=== PATIENT | female | born 1960 | race Caucasian/White ===

== ENCOUNTER → 2016-10-12 | Outpatient (CLI) | payer BC ==
--- NOTE | 2016-10-13 13:22 | EEG Procedure Note ---
EEG Procedure Note Date of Service Oct 12, 2016. Start / End Times Start Time: 8:24 AM End Time: 9:45 AM Referring Physician Veronica Gupta History This is a 56-year-old female with sudden onset cognitive changes concerning for possible frontotemporal dementia. EEG for further evaluation of rapid onset dementia to rule out other etiologies or seizures. Description This is a 21 electrode EEG with a single channel dedicated to limited EKG. The electrodes were placed in accordance with the International 10-20 system. At the start of the recording the patient was in an awake state. Background was well organized and composed of symmetric mixed alpha and beta frequencies. There was a symmetric well-formed moderate amplitude 10-11 Hz posterior dominant rhythm that was reactive to eye opening and closure. Hyperventilation was not done. Intermittent photic stimulation at various frequencies produced no abnormalities. Sleep was indicated by vertex waves and symmetric sleep spindles Interpretation This is a normal awake and asleep routine EEG. There was no electrographic seizures or epileptiform discharges. Clinical Correlation A normal EEG does not rule out epilepsy if there is a strong clinical suspicion.
== END | disposition home or self-care (01) ==
LOC: C.NEUR 07:55
PROVIDERS: ATTEND Psychiatry & Neurology Neurology
DX: G31.09 Other frontotemporal neurocognitive disorder (principal)

== ENCOUNTER → 2017-02-07 | Outpatient (CLI) | payer BC | END | disposition home or self-care (01) | LOC: C.PAPS 14:02 | PROVIDERS: ATTEND Physician Assistant | DX: Z01.419 Encounter for gynecological examination (general) (routine) without abnormal findings (principal) ==

== ENCOUNTER → 2017-07-06 | Outpatient (CLI) | payer BC ==
[2017-07-06 12:37] LABS: ALBUMIN 4.3 gm/dl (3.4-5.0); BLOOD UREA NITROGEN 12 mg/dl (7-18); CARBON DIOXIDE 31 mmol/L (21-32); CREATININE 0.77 mg/dl (0.60-1.20); GLUCOSE 85 mg/dl (70-99); POTASSIUM 4.2 mmol/L (3.5-5.1); SODIUM 140 mmol/L (136-145)
[2017-07-06 12:40] LABS: ALKALINE PHOSPHATASE 92 U/L (45-117); ALT/SGPT 52 U/L (12-78); AST/SGOT 33 U/L (15-37); CHOLESTEROL 228 mg/dl (0-200); LDL CHOLESTEROL CALCULATED 143 mg/dl; TOTAL PROTEIN 8.1 gm/dl (6.4-8.2)
[2017-07-10 02:26] LABS: ANA SCREEN TC 249X POSITIVE (NEGATIVE); ANTI-SS-A <1.0 NEG AI (<1.0 NEG); ANTI-SS-B <1.0 NEG AI (<1.0 NEG); COMPLEMENT C3 TC 44859W 102 MG/DL (90-180); COMPLEMENT C4 TC 44982E 30 MG/DL (16-47)
== END | disposition home or self-care (01) ==
LOC: C.LAB1850 09:55
PROVIDERS: ATTEND Internal Medicine
DX: F09 Unspecified mental disorder due to known physiological condition (principal); Z13.220 Encounter for screening for lipoid disorders; G30.9 Alzheimer's disease, unspecified

== ENCOUNTER 2021-02-23 10:39 | Inpatient (IN) ==
[~2021-02-23 10:39] MED LIST: CLINDAMYCIN 600 MG/54 ML BAG IV SCH
[2021-02-23 11:13] LABS: Basophils # (auto) 0.01 K/uL (0-0.2); Basophils % (auto) 0.1 %; Eosinophils # (auto) 0.02 K/uL (0-0.5); Eosinophils % (auto) 0.3 %; Immature Granulocytes # (auto) 0.01 K/uL (0.00-0.02); Immature Granulocytes % (auto) 0.1 %; Lymphocytes # (auto) 1.12 K/uL (1.2-3.4); Lymphocytes % (auto) 14.4 %; Mean Corpuscular Hemoglobin 31.4 pg (25-34); Mean Corpuscular Volume 92.3 fL (80-100); Mean Platelet Volume 9.4 fL (7.4-10.4); Monocytes # (auto) 0.67 K/uL (0.11-0.59); Monocytes % (auto) 8.6 %; Neutrophils # (auto) 5.95 K/uL (1.4-6.5); Neutrophils % (auto) 76.5 %; Platelet Count 284 K/uL (130-400); RDW Coefficient of Variation 13.1 % (11.5-14.5); RDW Standard Deviation 44.1 fL (36.4-46.3); Red Blood Count 5.09 M/uL (4.2-5.4); White Blood Count 7.78 K/uL (4.8-10.8)
[2021-02-23 11:30] LABS: Alanine Aminotransferase 19 (12-78); Albumin Level 3.5 gm/dl (3.4-5.0); Aspartate Aminotransferase 14 U/L (15-37); BUN Creatinine Ratio 12.2 (10-20); Blood Urea Nitrogen 9 mg/dl (7-18); Calcium 9.5 mg/dl (8.5-10.1); Carbon Dioxide 30 mmol/L (21-32); Chloride 106 mmol/L (98-107); Est GFR (African American) 99.5 ml/min; Est GFR (Non-African American) 85.9 ml/min; Glucose 97 mg/dl (70-99); Lipase 140 U/L (73-393); Potassium 3.5 mmol/L (3.5-5.1); Sodium 140 mmol/L (136-145)
[2021-02-23 11:33] LABS: Albumin Globulin Ratio 0.8 (0.9-2); Alkaline Phosphatase 141 U/L (45-117); Bilirubin,Total 1.7 mg/dl (0.2-1); Globulin 4.4 gm/dl (2.5-4.0); Total Protein 7.9 gm/dl (6.4-8.2)
[2021-02-23] MEDS ORDERED: OPTIRAY 320 100ml IV ONE (11:45)
[2021-02-23] MEDS ORDERED: MoRPHine SULFATE 2 MG/ML CARP IV STA (12:09)
[2021-02-23] MEDS ORDERED: ONDANSETRON INJ 2 MG/ML 2 ML VIAL IV STA (12:09)
--- NOTE | 2021-02-23 12:18 | Emergency Department Note ---
History of Present Illness General Chief complaint: Abdominal Pain Stated complaint: APENDICITIS, ABD PAIN, VOMITING, DR REFERRED History of Present Illness This patient is a 60-year-old female who presents the emergency department via private vehicle for evaluation of right lower abdominal pain that the patient's noticed 2 days ago. The patient has a history of Alzheimer's disease and is nonverbal. The history was taken from the patient's . He was bathing her 2 days ago, when he noticed that she was wincing in pain when he touched her lower abdomen. She also has had several episodes of vomiting and diarrhea. The patient's contacted their primary care today as they were concerned about appendicitis. The patient's denies any fever. She has not received anything for pain. Home Medications Medication Instructions Recorded Confirmed Type buspirone 10 mg tablet 20 mg PO BID tab 05/20/20 02/23/21 History donepezil 10 mg tablet See Rx Instructions .ROUTE 08/28/20 02/23/21 Rx .COMPLEX #60 tab haloperidol 2 mg tablet 2 mg PO DAILY tab 09/24/20 02/23/21 History lorazepam 1 mg tablet 1 mg PO .COMPLEX 09/25/20 02/23/21 History paroxetine HCl 20 mg tablet 20 mg PO .COMPLEX #1 tab 01/19/21 02/23/21 Rx acyclovir 5 % topical cream 1 applic TOPICAL BID 4 Days #10 g 02/10/21 02/23/21 Rx memantine 10 mg tablet 10 mg PO BID 30 Days #60 tab 02/11/21 02/23/21 Rx mupirocin 2 % topical ointment 1 applic TOPICAL BID #15 g 02/12/21 02/23/21 Rx Allergies Allergy/AdvReac Type Severity Reaction Status Date / Time Penicillins Allergy Unknown CAN'T Verified 02/23/21 14:40 REMEMBER acetaminophen Allergy Unknown Verified 02/23/21 16:32 [From Darvocet-N] propoxyphene Allergy Unknown Verified 02/23/21 16:32 [From Darvocet-N] Past Med/Surg History Medical History Alzheimer's dementia end-stage, averbal Arthritis of low back Endometriosis Groin pain Hiatal hernia Hx of skin cancer, basal cell Positive FRANCHESCA (antinuclear antibody) Uterine leiomyoma Surgical History H/O bilateral salpingo-oophorectomy H/O breast augmentation H/O laparoscopy H/O ovarian cystectomy History of laparoscopic appendectomy (02/23/21) Laparoscopic appendectomy. Dr. Hernández 02/23/2021 S/P hysterectomy with oophorectomy S/P tonsillectomy S/P tooth extraction Family History Father Colon cancer Clotting disorder Grandmother (Maternal) Ovarian cancer Grandfather (Maternal) Heart problem Mother No known health problems Denies family history of Breast cancer Social History Smoking Status: Unknown if ever smoked Second Hand Exposure: No; Do You Dip or Chew Tobacco: No; Tobacco Cessation Education Requested by Patient: No Hx Alcohol Use: No Hx Substance Use: No Preferred Language: Liberian Communication Ability: Unable Visual Impairment: No Limitations Hearing Ability: Normal Beliefs That Will Affect Care: None marital status: Current Living Situation: Spouse current occupational status: disabled 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 Feels Safe at Home: Yes Physical Activity Frequency: 3-4 Times per Week Seatbelt Use: always Assistive Devices: None Review of Systems A total of 10 systems reviewed and were otherwise negative Physical Exam Vital Signs Vital Signs - 24 hr 02/23/21 12:34 02/23/21 13:26 02/23/21 14:17 Temperature Temperature Source Pulse Rate [Apical] 68 67 64 Pulse Rhythm [Apical] Regular Pulse Strength [Apical] Normal Respiratory Rate 16 18 18 Respiratory Effort / Characteristics Non-Labored Non-Labored Respiratory Depth Normal Normal Normal Respiratory Pattern Regular Regular Regular Blood Pressure [Left Arm] 121/72 121/72 116/75 Blood Pressure Mean [Left Arm] 88 88 88 Blood Pressure Position [Left Arm] Sitting Semi-fowlers Sitting Pulse Oximetry 98 97 97 Oxygen Delivery Method Room Air Room Air Room Air 02/23/21 15:07 Temperature 36.6 C Temperature Source Oral Pulse Rate [Apical] 66 Pulse Rhythm [Apical] Regular Pulse Strength [Apical] Normal Respiratory Rate 18 Respiratory Effort / Characteristics Non-Labored Spontaneous Respiratory Depth Normal Respiratory Pattern Blood Pressure [Left Arm] 127/70 Blood Pressure Mean [Left Arm] 89 Blood Pressure Position [Left Arm] Lying Pulse Oximetry 96 Oxygen Delivery Method Room Air See below Constitutional WD/WN, vitals as above Eyes EOM intact bilaterally ENMT external ear and nose normal, oropharynx normal Neck trachea midline Respiratory normal respiratory effort, lungs clear to auscultation Cardiovascular RRR, no murmur, no edema Gastrointestinal (Abdomen) Bowel sounds present, but hypoactive. Tenderness to palpation noted in the right lower quadrant. No guarding or rebound tenderness noted. Abdomen is soft. Musculoskeletal No edema noted. The patient does not follow commands. Skin no rashes, warm and dry Neurologic The patient opens her eyes to verbal stimuli. Smiles. Does not follow commands. Psychiatric Acting appropriately Course Course Patient was seen and examined Vital signs including blood pressure were reviewed medications list was verified with patient Labs were obtained, and a saline lock was established The patient was ordered morphine 2 mg IV and Zofran 4 mg IV. She was also ordered IV fluids. Imaging was performed and reviewed Upon reevaluation, the patient was resting comfortably. I discussed the results with the patient's . He voiced understanding The case was discussed with general surgery in addition to my supervising physician The patient remained stable in the emergency department. She went to the OR for definitive management Consultations Consultation #1: general surgery Administered Medications Buspirone HCl (Buspirone 5 Mg Tab) 20 mg PO BID [facility] Stop: 03/25/21 20:59 Last Admin: 02/24/21 10:04 Dose: 20 mg Documented by: [id number] Admin: 02/23/21 21:10 Dose: 20 mg Documented by: [id number] Donepezil HCl (Donepezil Hcl 10 Mg Tab) 10 mg PO BID [facility] Stop: 03/25/21 20:59 Last Admin: 02/24/21 10:05 Dose: 10 mg Documented by: [id number] Admin: 02/23/21 21:10 Dose: 10 mg Documented by: [id number] Haloperidol (Haloperidol 1 Mg Tab) 2 mg PO DAILY [facility] Stop: 03/26/21 08:59 Last Admin: 02/24/21 10:05 Dose: 2 mg Documented by: [id number] Clindamycin Phosphate 600 mg/ (Dextrose) 54 mls @ 100 mls/hr IV Q8H BEATRICE Stop: 03/05/21 18:20 Last Infusion: 02/24/21 06:32 Dose: 0 mls/hr Documented by: [id number] Admin: 02/24/21 05:49 Dose: 100 mls/hr Documented by: [id number] Infusion: 02/23/21 22:02 Dose: 0 mls/hr Documented by: [id number] Admin: 02/23/21 21:10 Dose: 100 mls/hr Documented by: [id number] Sodium Chloride (Nss 1000ml) 1,000 mls @ 80 mls/hr IV .[id number] BEATRICE Stop: 03/25/21 18:20 Last Admin: 02/24/21 05:50 Dose: 80 mls/hr Documented by: [id number] Infusion: 02/24/21 05:50 Dose: 80 mls/hr Documented by: [id number] Admin: 02/23/21 18:25 Dose: 80 mls/hr Documented by: [id number] Memantine (Memantine Hcl 10 Mg Tab) 10 mg PO BID [facility] Stop: 03/25/21 20:59 Last Admin: 02/24/21 10:06 Dose: 10 mg Documented by: [id number] Admin: 02/23/21 21:10 Dose: 10 mg Documented by: [id number] Mupirocin (Mupirocin 2% Oint 22 Gm Tube) 1 appln EXT BID [facility] Stop: 03/25/21 20:59 Last Admin: 02/24/21 10:20 Dose: 1 appln Documented by: [id number] Admin: 02/23/21 22:02 Dose: Not Given Documented by: [id number] Oxycodone HCl (Oxycodone Hcl Ir 5 Mg Tab (Immediate Release)) 5 mg PO Q4HWA PRN PRN Reason: Pain Stop: 03/09/21 18:20 Last Admin: 02/24/21 10:16 Dose: 5 mg Documented by: [id number] Paroxetine HCl (Paroxetine Hcl 20 Mg Tab) 20 mg PO HS [facility] Stop: 03/25/21 20:59 Last Admin: 02/23/21 21:10 Dose: 20 mg Documented by: [id number] Discontinued Medications Bupivacaine HCl (Bupivacaine 0.5 % 5 Mg/1 Ml Mpf 30ml Vial) Confirm Administered Dose 30 ml .ROUTE .STK-MED ONE Stop: 02/23/21 14:33 Last Admin: 02/23/21 16:25 Dose: 6 ml Documented by: [id number] Dextrose/Sodium Chloride (D5w And 1/2nss) 1,000 mls @ 125 mls/hr IV .Q8H BEATRICE Stop: 03/25/21 13:44 Last Infusion: 02/24/21 02:15 Dose: 0 mls/hr Documented by: [id number] Infusion: 02/23/21 17:50 Dose: 0 mls/hr Documented by: [id number] Admin: 02/23/21 13:45 Dose: 125 mls/hr Documented by: [id number] Clindamycin Phosphate (Cleocin) 600 mg in 54 mls @ 100 mls/hr IV PREOP [facility]ATRICE Stop: 02/24/21 05:59 Last Infusion: 02/23/21 18:31 Dose: 0 mls/hr Documented by: [id number] Admin: 02/23/21 15:44 Dose: 100 mls/hr Documented by: [id number] Acetaminophen (Ofirmev) 1,000 mg in 100 mls @ 400 mls/hr IV NOW ONE; Protocol Stop: 02/23/21 16:42 Last Infusion: 02/23/21 18:21 Dose: 0 mls/hr Documented by: [id number] Admin: 02/23/21 17:07 Dose: 400 mls/hr Documented by: [id number] Ioversol (Optiray 320 100ml) 95 ml IV ONCE ONE Stop: 02/23/21 11:46 Last Admin: 02/23/21 11:47 Dose: 95 ml Documented by: [id number] Morphine Sulfate (Morphine Sulfate 2 Mg/Ml Carp) 2 mg IV NOW STA Stop: 02/23/21 12:10 Last Admin: 02/23/21 12:14 Dose: 2 mg Documented by: [id number] Ondansetron HCl (Ondansetron Inj 2 Mg/Ml 2 Ml Vial) 4 mg IV NOW STA Stop: 02/23/21 12:10 Last Admin: 02/23/21 12:13 Dose: 4 mg Documented by: [id number] Medical Decision Making Medical Records Attestation: I reviewed the patient's medical records. Home Medications Current Medication List: was personally reviewed by me Laboratory Data Attestation: I reviewed the patient's lab results. Result diagrams: 02/24/21 06:56 02/24/21 06:56 Lab Results 02/23/21 Range/Units 14:00 SARS-CoV-2, RNA, NAAT NEGATIVE (NEGATIVE) Imaging Data Attestation: I personally reviewed and interpreted this imaging study as follows: MDM Narrative Differential diagnosis: Appendicitis, bowel obstruction, diverticulitis, ovarian cyst, ovarian torsion, uterine fibroids, ureteral stone, pyelonephritis, among others were considered This patient is a 60-year-old female who presents emergency department with her for evaluation of lower abdominal discomfort. As noted above, the patient is nonverbal secondary to early onset also emergency disease. Her vital signs were stable. She was tender in the right lower quadrant. A work-up was performed. There is no leukocytosis. A CAT scan was also performed and consistent with acute appendicitis without perforation or abscess. Surgery was consulted. She will be taken to the OR for definitive management. She remained stable in the emergency department. Impression & Plan Acute appendicitis Discharge Plan Visit Data Chief Complaint: Abdominal Pain Stated Complaint: APENDICITIS, ABD PAIN, VOMITING, DR REFERRED ED Midlevel Provider: Catrachita Tomlinson Discharge Problem: Acute appendicitis Patient Disposition: Admitted As Inpatient Condition: Fair Discharge Instructions Interventions: ED Discharge Assessment Last Done: 02/23/21 14:53
--- NOTE | 2021-02-23 12:19 | CT Scan Report ---
CT abd pelvis IV con only CLINICAL HISTORY: N/V/D, r/o appy TECHNIQUE: Helical axial images of the abdomen and pelvis were obtained and displayed. Automated dose lowering techniques and/or adjustment according to patient size were utilized for this exam. This e xam was performed with intravenous contrast. COMPARISON: None available at the time of this dictation. FINDINGS: Lower chest: No acute abnormality Liver: Unremarkable. No focal lesions are seen. Gallbladder and biliary tree: No calcified gallstones. Normal caliber wall. No intra- or extrahepatic biliary ductal dilation. Pancreas: Unremarkable, no focal lesions. Spleen: Unremarkable. Adrenals: Unremarkable. Kidneys and ureters: Multiple renal cysts are seen. Bladder: Unremarkable. Reproductive organs: Patient is status post hysterectomy. A left adnexal cyst is noted. Bowel: The appendix is dilated to approximately 7 mm and there is surrounding fat stranding and a sma ll amount of free fluid. No abscess is seen. Lymph nodes Retroperitoneal: Unremarkable. Mesenteric: Unremarkable. Pelvic: Unremarkable. Peritoneum: Normal Vessels: Atherosclerotic calcifications are seen. Abdominal wall: Unremarkable. Bones: Degenerative changes are seen including loss of height of the L2 vertebral body. IMPRESSION: Findings are compatible with acute appendicitis without evidence of perforation or abscess formation. ACT 112: Negative or not required by law. Electronically signed by: Jhonatan Franlkin M.D. 02/23/2021 12:17 PM
[2021-02-23] MEDS ORDERED: D5W AND 1/2NSS 1,000 ML IV SCH (13:45)
--- NOTE | 2021-02-23 14:02 | History & Physical Report ---
Date of Service February 23, 2021 Assessment & Plan (1) Acute appendicitis: Plan: This is a 60yF with a PMH of early onset Alzheimer's diagnosed in 2014 who presents to the [facility] ED on 02/23/21 with abdominal pain starting monday. History obtained from at bedside as patient is nonverbal. Abdominal pain has been associated with diarrhea and a large bout of emesis yesterday. Workup in the ER with a CT a/p revealed evidence of acute appendicitis, no abscess/pe rforation. WBC 7.7, afebrile. On examination patient is acutely tender in the lower abdomen, worse in the RLQ. We will proceed with admitting patient and booking her for the OR for a laparoscopic appendectomy. Dr. hernández has obtained consent. Will ask hospitalists to follow along with us. Pre-op abx ordered. Covid test pending. Dr. Hernández-as above-I saw the patient in the emergency room with her She has evidence of acute appendicitis on her CAT scan and right lower quadrant tenderness We will proceed with laparoscopic appendectomy possible open appendectomy I discussed possible drain placement We will asked the medical team to see the patient History of Present Illness Primary Care Provider: Sinan Weeks MD This is a 60yF with a PMH of early onset Alzheimer's diagnosed in 2014 who presents to the [facility] ED on 02/23/21 with abdominal pain. Patient is non verbal and her is at the bedside who provides the subjective history. Patient at baseline has home nurses come out to the house multiple times a day in addition to her caring for her at home. As of Monday the reports giving his a shower and noticed her wincing in pain when pressing on her belly. Starting yesterday she has had bouts of diarrhea since 6am in addition to a large bout of emesis around lunch time. After discussion with the home health nurses and a phone call to the patient's PCP this AM it was recommended she come into the ER for further evaluation. In the ER patient underwent a CT a/p that revealed evidence of acute appendicitis. No abscess or perforation. Past surgical history includes a hysterectomy and BSO. Patient needs help with her ADL's and eating. Patient has an allergy to PCN but unclear what the allergy is. She did eat some cereal and fruit around 8am today. No fevers/chills noted. Allergies Allergy/AdvReac Type Severity Reaction Status Date / Time Penicillins Allergy Unknown CAN'T Verified 02/23/21 14:40 REMEMBER Bee sting Allergy Unknown CAN'T Uncoded 02/23/21 14:40 REMEMBER Darvocet A500 Allergy Unknown CAN'T Uncoded 02/23/21 14:40 REMEMBER Home Medications Medication Instructions Recorded Confirmed Type buspirone 10 mg tablet 20 mg PO BID tab 05/20/20 02/23/21 History donepezil 10 mg tablet See Rx Instructions .ROUTE 08/28/20 02/23/21 Rx .COMPLEX #60 tab haloperidol 2 mg tablet 2 mg PO DAILY tab 09/24/20 02/23/21 History lorazepam 1 mg tablet 1 mg PO .COMPLEX 09/25/20 02/23/21 History paroxetine HCl 20 mg tablet 20 mg PO .COMPLEX #1 tab 01/19/21 02/23/21 Rx acyclovir 5 % topical cream 1 applic TOPICAL BID 4 Days #10 g 02/10/21 02/23/21 Rx memantine 10 mg tablet 10 mg PO BID 30 Days #60 tab 02/11/21 02/23/21 Rx mupirocin 2 % topical ointment 1 applic TOPICAL BID #15 g 02/12/21 02/23/21 Rx Past Med/Surg History Medical History Alzheimer's dementia end-stage, averbal Arthritis of low back Endometriosis Groin pain Hiatal hernia Hx of skin cancer, basal cell Positive FRANCHESCA (antinuclear antibody) Uterine leiomyoma Surgical History H/O bilateral salpingo-oophorectomy H/O breast augmentation H/O laparoscopy H/O ovarian cystectomy S/P hysterectomy with oophorectomy S/P tonsillectomy S/P tooth extraction Family History Father Colon cancer Clotting disorder Grandmother (Maternal) Ovarian cancer Grandfather (Maternal) Heart problem Mother No known health problems Denies family history of Breast cancer Social History Smoking Status: Never smoker Hx Alcohol Use: No Hx Substance Use: No Preferred Language: Nigerian Communication Ability: Impaired Visual Impairment: No Limitations Hearing Ability: Normal Beliefs That Will Affect Care: None marital status: Current Living Situation: Spouse current occupational status: disabled 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 nonverbal Constitutional: well developed and well nourished; no acute distress Respiratory: normal respiratory effort Gastrointestinal (Abdomen): Inspection/Auscultation: + abdomen distended Percussion/Palpation: + abdomen tender (tender to palpation in lower abdomen,worse in RLQ) and abdomen soft Results & Data Results & Data ([facility]) Vital Signs (Past 12 Hours) Vital Signs Temp Pulse Pulse Resp BP BP Pulse Ox 02/23/21 13:26 67 18 121/72 97 02/23/21 12:34 68 16 121/72 98 02/23/21 10:43 36 C L 86 16 108/[address] abd pelvis IV con only CLINICAL HISTORY: N/V/D, r/o appy TECHNIQUE: Helical axial images of the abdomen and pelvis were obtained and displayed. Automated dose lowering techniques and/or adjustment according to patient size were utilized for this exam. This exam was performed with intravenous contrast. COMPARISON: None available at the time of this dictation. FINDINGS: Lower chest: No acute abnormality Liver: Unremarkable. No focal lesions are seen. Gallbladder and biliary tree: No calcified gallstones. Normal caliber wall. No intra- or extrahepatic biliary ductal dilation. Pancreas: Unremarkable, no focal lesions. Spleen: Unremarkable. Adrenals: Unremarkable. Kidneys and ureters: Multiple renal cysts are seen. Bladder: Unremarkable. Reproductive organs: Patient is status post hysterectomy. A left adnexal cyst is noted. Bowel: The appendix is dilated to approximately 7 mm and there is surrounding fat stranding and a small amount of free fluid. No abscess is seen. Lymph nodes Retroperitoneal: Unremarkable. Mesenteric: Unremarkable. Pelvic: Unremarkable. Peritoneum: Normal Vessels: Atherosclerotic calcifications are seen. Abdominal wall: Unremarkable. Bones: Degenerative changes are seen including loss of height of the L2 vertebral body. IMPRESSION: Findings are compatible with acute appendicitis without evidence of perforation or abscess formation. ACT 112: Negative or not required by law. Electronically signed by: Jhonatan Franklin M.D. 02/23/2021 12:17 PM PG Care Time/CCT Total # of Minutes Spent Total Time Spent with Patient: Total time spent is greater than 50% in coordination of care (as documented) at patient's floor/unit and/or counseling patient: Coding Level of Care Code 21552 Initial Inpt Care Lvl 1 Diagnoses Acute appendicitis K35.80
[2021-02-23] MEDS ORDERED: ONDANSETRON INJ 2 MG/ML 2 ML VIAL IV PRN ×2 (14:11→18:21)
[2021-02-23] MEDS ORDERED: fentaNYL citrate 100 MCG/2 ML VIAL IV PRN (14:11)
[2021-02-23] MEDS ORDERED: LABETALOL HCL IV 5 MG/ML 20ML IV PRN (14:11)
[2021-02-23] MEDS ORDERED: PHENYLEPHRINE 100MCG/ML 5ML SYR IV PRN (14:11)
[2021-02-23] MEDS ORDERED: MEPERIDINE HCL 25 MG/ML CARP/VIAL IV PRN (14:11)
[2021-02-23] MEDS ORDERED: HYDROmorphone INJ 1 MG/ML SYRINGE IV PRN (14:11)
[2021-02-23] MEDS ORDERED: ATROPINE SULFATE 0.1 MG/ML 10ML SYR IV PRN (14:11)
[2021-02-23] MEDS ORDERED: ePHEDrine sulfate 50 MG/ML AMP IV PRN (14:11)
--- NOTE | 2021-02-23 14:11 | Anesthesiology Consultation ---
Date of Service February 23, 2021 Assessment & Plan (1) Encounter for pre-operative examination: Chart Review Chart Review: Acceptable Risk for Surgery (necessary surgery) and Patient NOT seen in Pre Admission Testing Consults Requested none History Surgery Operation Date: 02/23/21 15:00 Proposed Procedures p Laparoscopic Appendectomy - Luiz Hernández MD, FACS Height/Weight Weight: 63.2 kg Allergies Allergy/AdvReac Type Severity Reaction Status Date / Time Penicillins Allergy Unknown CAN'T Verified 02/23/21 14:40 REMEMBER Bee sting Allergy Unknown CAN'T Uncoded 02/23/21 14:40 REMEMBER Darvocet A500 Allergy Unknown CAN'T Uncoded 02/23/21 14:40 REMEMBER Medications Home Medications Medication Instructions Recorded Confirmed Last Taken buspirone 10 mg tablet 20 mg PO BID tab 05/20/20 02/23/21 02/23/21 donepezil 10 mg tablet See Rx Instructions .ROUTE 08/28/20 02/23/21 02/23/21 .COMPLEX #60 tab haloperidol 2 mg tablet 2 mg PO DAILY tab 09/24/20 02/23/21 02/23/21 lorazepam 1 mg tablet 1 mg PO .COMPLEX 09/25/20 02/23/21 02/23/21 paroxetine HCl 20 mg tablet 20 mg PO .COMPLEX #1 tab 01/19/21 02/23/21 02/23/21 acyclovir 5 % topical cream 1 applic TOPICAL BID 4 Days #10 g 02/10/21 02/23/21 02/23/21 memantine 10 mg tablet 10 mg PO BID 30 Days #60 tab 02/11/21 02/23/21 02/23/21 mupirocin 2 % topical ointment 1 applic TOPICAL BID #15 g 02/12/21 02/23/21 02/23/21 Active Medications Generic Name Dose Route Start Last Admin Trade Name Freq PRN Reason Stop Dose Admin Dextrose/Sodium Chloride 1,000 mls @ 125 mls/hr 02/23/21 13:45 02/23/21 13:45 D5w And 1/2nss IV 03/25/21 13:44 125 mls/hr .Q8H BEATRICE Administration Past Medical History Medical History Alzheimer's dementia end-stage, averbal Arthritis of low back Endometriosis Groin pain Hiatal hernia Hx of skin cancer, basal cell Positive FRANCHESCA (antinuclear antibody) Uterine leiomyoma Past Family History Family History Father Colon cancer Clotting disorder Grandmother (Maternal) Ovarian cancer Grandfather (Maternal) Heart problem Mother No known health problems Denies family history of Breast cancer Past Surgical History Surgical History H/O bilateral salpingo-oophorectomy H/O breast augmentation H/O laparoscopy H/O ovarian cystectomy S/P hysterectomy with oophorectomy S/P tonsillectomy S/P tooth extraction Social History Smoking Status: Never smoker Hx Alcohol Use: No Hx Substance Use: No Physical Exam Vital Signs Last Vital Signs Temp 36 C L 02/23/21 10:43 Pulse 64 02/23/21 14:17 Resp 18 02/23/21 14:17 BP 116/75 02/23/21 14:17 Pulse Ox 97 02/23/21 14:17 Testing Laboratory Results 02/23/21 Unknown 02/23/21 Unknown Electrocardiogram Date: 07/02/20 DICTATED BY:Kenneth Day MD Test Reason : Blood Pressure : / mmHG Vent. Rate : 078 BPM Atrial Rate : 078 BPM P-R Int : 152 ms QRS Dur : 080 ms QT Int : 394 ms P-R-T Axes : 048 023 016 degrees QTc Int : 449 ms Normal sinus rhythm Low voltage QRS Poor R wave progression, consider anterior VA vs. lead placement vs. LVH Abnormal ECG No previous ECGs available Confirmed by Kenneth Day ([id number]) on 07/03/2020 12:58:07 PM Referred By: Sinan Galdamez Confirmed By:Mauro Day Other Testing CT abd pelvis IV con only CLINICAL HISTORY: N/V/D, r/o appy TECHNIQUE: Helical axial images of the abdomen and pelvis were obtained and displayed. Automated dose lowering techniques and/or adjustment according to pa tient size were utilized for this exam. This exam was performed with intravenous contrast. COMPARISON: None available at the time of this dictation. FINDINGS: Lower chest: No acute abnormality Liver: Unremarkable. No focal lesions are seen. Gallbladder and biliary tree: No calcified gallstones. Normal caliber wall. No intra- or extrahepatic biliary ductal dilation. Pancreas: Unremarkable, no focal lesions. Spleen: Unremarkable. Adrenals: Unremarkable. Kidneys and ureters: Multiple renal cysts are seen. Bladder: Unremarkable. Reproductive organs: Patient is status post hysterectomy. A left adnexal cyst is noted. Bowel: The appendix is dilated to approximately 7 mm and there is surrounding fat stranding and a small amount of free fluid. No abscess is seen. Lymph nodes Retroperitoneal: Unremarkable. Mesenteric: Unremarkable. Pelvic: Unremarkable. Peritoneum: Normal Vessels: Atherosclerotic calcifications are seen. Abdominal wall: Unremarkable. Bones: Degenerative changes are seen including loss of height of the L2 vertebral body. IMPRESSION: Findings are compatible with acute appendicitis without evidence of perforation or abscess formation. ACT 112: Negative or not required by law. Electronically signed by: Jhonatan Franklin M.D. 02/23/2021 12:17 PM Dictated:02/23/21 120 Transcribed: 02/23/21 120
[2021-02-23] MEDS ORDERED: fentaNYL citrate 100 MCG/2 ML VIAL ONE (14:19)
[2021-02-23] MEDS ORDERED: ONDANSETRON INJ 2 MG/ML 2 ML VIAL ONE (14:19)
[2021-02-23] MEDS ORDERED: DEXAMETHASONE SOD INJ 4 MG/ML VIAL ONE (14:19)
[2021-02-23] MEDS ORDERED: LIDOCAINE 2% 2 ML VIAL/AMP(20MG/ML) INFIL ONE (14:19)
[2021-02-23] MEDS ORDERED: ROCURONIUM BROMIDE 10 MG/ML 5 ML VIAL IV ONE (14:19)
[2021-02-23] MEDS ORDERED: PROPOFOL IV EMULSION 10 MG/ML 20 ML VIAL IV ONE (14:19)
[2021-02-23] MEDS ORDERED: BUPIVACAINE 0.5 % 5 MG/1 ML MPF 30ML VIAL ONE (14:32)
--- NOTE | 2021-02-23 14:40 | Hospitalist Consultation ---
Date of Consultation February 23, 2021 Assessment & Plan (1) Acute appendicitis: Patine tis low to intermediate risk for an intermediate risk procedure. RCRI risk is 1 point class II risk Almaraz score is low. At this stage, no further workup is required as delaying surgery may lead to increase risk of due to appendix rupture and/or sepsis. Surgical risk calculator shows low risk. (2) Alzheimer's dementia: Advanced. Patient is non verbal. Has had moments of agitation in previous hospital stay at [facility]. Will need to monitor. Resume home meds in AM. History of Present Illness Reason for Consultation: preop clearance/ medical management Requesting Physician: Dr. Hernández Attending Physician: Dr. Hernández History of Present Illness 60 yo female with advance Alzheimer's dementia is non verbal. History obtained by chart review and discussion with Surgical team as is not at bedside. Patient is admitted with abdominal pain, diarrhea. Came to the hospital and imaging confirmed appendectomy. Patient is going to the OR and consult for medicine ordered. Allergies Allergy/AdvReac Type Severity Reaction Status Date / Time Penicillins Allergy Unknown CAN'T Verified 02/23/21 14:40 REMEMBER acetaminophen Allergy Unknown Verified 02/23/21 16:32 [From Darvocet-N] propoxyphene Allergy Unknown Verified 02/23/21 16:32 [From Darvocet-N] Home Medications Medication Instructions Recorded Confirmed Type buspirone 10 mg tablet 20 mg PO BID tab 05/20/20 02/23/21 History donepezil 10 mg tablet See Rx Instructions .ROUTE 08/28/20 02/23/21 Rx .COMPLEX #60 tab haloperidol 2 mg tablet 2 mg PO DAILY tab 09/24/20 02/23/21 History lorazepam 1 mg tablet 1 mg PO .COMPLEX 09/25/20 02/23/21 History paroxetine HCl 20 mg tablet 20 mg PO .COMPLEX #1 tab 01/19/21 02/23/21 Rx acyclovir 5 % topical cream 1 applic TOPICAL BID 4 Days #10 g 02/10/21 02/23/21 Rx memantine 10 mg tablet 10 mg PO BID 30 Days #60 tab 02/11/21 02/23/21 Rx mupirocin 2 % topical ointment 1 applic TOPICAL BID #15 g 02/12/21 02/23/21 Rx Patient History Medical History Alzheimer's dementia end-stage, averbal Arthritis of low back Endometriosis Groin pain Hiatal hernia Hx of skin cancer, basal cell Positive FRANCHESCA (antinuclear antibody) Uterine leiomyoma Surgical History H/O bilateral salpingo-oophorectomy H/O breast augmentation H/O laparoscopy H/O ovarian cystectomy S/P hysterectomy with oophorectomy S/P tonsillectomy S/P tooth extraction Family History Father Colon cancer Clotting disorder Grandmother (Maternal) Ovarian cancer Grandfather (Maternal) Heart problem Mother No known health problems Denies family history of Breast cancer Social History Smoking Status: Unknown if ever smoked Second Hand Exposure: No; Do You Dip or Chew Tobacco: No; Tobacco Cessation Education Requested by Patient: No Hx Alcohol Use: No Hx Substance Use: No Preferred Language: Greek Communication Ability: Unable Visual Impairment: No Limitations Hearing Ability: Normal Beliefs That Will Affect Care: None marital status: Current Living Situation: Spouse current occupational status: disabled 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 Feels Safe at Home: Yes Physical Activity Frequency: 3-4 Times per Week Seatbelt Use: always Assistive Devices: None Review of Systems Review of Systems: Unobtainable due to mental health condition Physical Exam Constitutional: WD/WN, vitals as above Eyes: PERRL, conjunctivae normal, anicteric sclerae ENMT: external ear and nose normal, oropharynx normal Neck: trachea midline, no thyromegaly Respiratory: normal respiratory effort, lungs clear to auscultation Cardiovascular: RRR, no murmur, no edema Results & Data Results & Data ([facility]) Vital Signs (Past 12 Hours) Vital Signs Temp Pulse Pulse Resp BP BP Pulse Ox 02/23/21 14:17 64 18 116/75 97 02/23/21 13:26 67 18 121/72 97 02/23/21 12:34 68 16 121/72 98 02/23/21 10:43 36 C L 86 16 108/53 L 96 PG Care Time/CCT Total # of Minutes Spent Total Time Spent with Patient: Total time spent is greater than 50% in coordination of care (as documented) at patient's floor/unit and/or counseling patient: Coding Level of Care Code 72179 Inpt Consult Level 3 Diagnoses Acute appendicitis K35.80 Alzheimer's dementia G30.9; F02.80
[2021-02-23] MEDS ORDERED: SUCCINYLCHOLINE 100MG/5ML SYR IV ONE (15:30)
[2021-02-23] MEDS ORDERED: NEOSTIGMINE METHYLSULFATE 1 MG/ML 10ML VIAL ONE (16:20)
[2021-02-23] MEDS ORDERED: GLYCOPYRROLATE 0.2 MG/ML VIAL ONE (16:20)
[2021-02-23] MEDS ORDERED: ACETAMINOPHEN 1,000 MG/100 ML VIAL IV ONE (16:28)
--- NOTE | 2021-02-23 16:28 | Post Operative Brief Note ---
PG Immediate Post Op with CF Date of Surgery February 23, 2021 Pre & Post Diagnosis Operation Date: 02/23/21 15:00 Pre-Op Diagnosis: Appendicitis Post-Op Diagnosis: Appendicitis, exudate, adhesions I identified the patient and participated in the time-out.: Yes Procedure Operation Date: 02/23/21 15:00 Actual Procedures p Laparoscopic Appendectomy(Not Applicable) - Luiz Hernández MD, FACS Surgeon Luiz Hernández MD, FACS Knitting Inspector Guy Castañeda Estimated Blood Loss 10 Findings Consistent with Post-Op Diagnosis Patient had acute inflammation with an exudate and acute adhesions involving the ileum cecum and omentum These were bluntly Specimens Specimen Description: A: Appendix Drains Salas Catheter ([address] Hernández see note for details. )
--- NOTE | 2021-02-23 17:16 | Anesthesiology Progress Note ---
Date of Service February 23, 2021 Anesthesia Post Procedure Vital Signs Vital Signs: Temp Pulse Pulse Resp BP BP BP 02/23/21 17:10 86 16 126/81 02/23/21 17:00 94 H 16 144/83 H 02/23/21 16:53 36.2 C L 101 H 16 154/89 H 02/23/21 15:07 36.6 C 66 18 127/70 02/23/21 14:17 64 18 116/75 02/23/21 13:26 67 18 121/72 02/23/21 12:34 68 16 121/72 02/23/21 10:43 36 C L 86 16 108/53 L Pulse Ox 02/23/21 17:10 99 02/23/21 17:00 95 02/23/21 16:53 95 02/23/21 15:07 96 02/23/21 14:17 97 02/23/21 13:26 97 02/23/21 12:34 98 02/23/21 10:43 96 Transfer of Care Handoff Completed per policy Notes Mental Status: alert / awake / arousable Patient Amnestic to Procedure: Yes Nausea / Vomiting: adequately controlled Pain: adequately controlled Airway Patency, RR, SpO2: stable & adequate BP & HR: stable & adequate Hydration State: stable & adequate Anesthetic Complications: no major complications apparent and Pt Satisfied with anesthetic care
--- NOTE | 2021-02-23 17:18 | Operative Report (OR) ---
DATE OF OPERATION: 02/23/2021. NAME OF OPERATION: Laparoscopic appendectomy. PREOPERATIVE DIAGNOSIS: Acute appendicitis. POSTOPERATIVE DIAGNOSIS: Acute appendicitis. STAFF SURGEON: Luiz Hernández MD. EXECUTIVE ADMINISTRATIVE ASST: TERESA Sharma. ANESTHESIA: General. DESCRIPTION OF PROCEDURE: The patient was brought in the operating room, placed on the operating tab le in supine position. She was intubated and Salas catheter was placed, which was mildly difficult r equiring a small catheter. Her abdomen was prepped and draped in the usual fashion. Pneumatic stock ings and orogastric tube were placed. 0.5% plain Marcaine was used to anesthetize all incisions. In cision was made above the umbilicus, carrying dissection down, placing a Veress needle producing pneu moperitoneum, placing an 11 mm port at this level, passing the camera. A 5 mm port was placed suprapu bically and a 12 mm port placed in left lower quadrant. There were adhesions acutely in the right lo wer quadrant of the omentum, small bowel and cecum, which were from acute appendicitis with exudate. There was no overt abscess or purulent fluid. These were gently bluntly and the appendix was identified. The mesoappendix was transected using an Endo-MAURICIO stapler. Then, the base of the ap pendix, which appeared to be relatively normal in size was transected using the Endo-MAURICIO. Appendix w as placed in an Endobag and removed through the left lower quadrant port site. The port replaced and then hemostasis was achieved and also the area was irrigated as well as the pelvis. There was no si gnificant abscess. Therefore, no drain was placed. All ports were then removed. The umbilical site , left lower quadrant site closed reapproximating the fascia using 0 Vicryl suture. The skin was gurinder pproximated using subcuticular 4-0 Monocryl. Steri-Strips in left lower quadrant. Dermabond at the other 2 sites. The patient was transferred to recovery room in stable condition. Job ID: [id number]
[2021-02-23] MEDS ORDERED: HYDROmorphone INJ 0.5 MG/0.5 ML SYR IV PRN ×2 (18:21)
[2021-02-23] MEDS ORDERED: PROMETHAZINE HCL 12.5 MG in SODIUM CHLORIDE 0.9% 50 ML IV PRN (18:21)
[2021-02-23] MEDS: SODIUM CHLORIDE 0.9% 1000ML 1,000 ML IV SCH (18:25)
[2021-02-23] MEDS: busPIRone 5 MG TAB PO SCH (21:10)
[2021-02-23] MEDS: MEMANTINE HCL 10 MG TAB PO SCH (21:10)
[2021-02-23] MEDS: DONEPEZIL HCL 10 MG TAB PO SCH (21:10)
[2021-02-23] MEDS: CLINDAMYCIN 600 MG in DEXTROSE 5% 50 ML IV SCH (21:10)
[2021-02-23] MEDS: PARoxetine HCL 20 MG TAB PO SCH (21:10)
[2021-02-23] MEDS: MUPIROCIN 2% OINT 22 GM TUBE EXT SCH (22:02)
[2021-02-24] MEDS: CLINDAMYCIN 600 MG in DEXTROSE 5% 50 ML IV SCH ×3 (05:49→21:28)
[2021-02-24] MEDS: SODIUM CHLORIDE 0.9% 1000ML 1,000 ML IV SCH ×2 (05:50→19:48)
--- NOTE | 2021-02-24 06:47 | Surgery Progress Note ---
Date of Service February 24, 2021 Assessment & Plan (1) S/P laparoscopic appendectomy: Plan: Patient also has what would be considered a functional quadriplegia as she appears to require Help with all of her ADLs She seems to be comfortable and is receiving no pain medication She is in no distress Her abdomen is flat and soft Continue IV antibiotics Diet as tolerated Admission and Anticipated Discharge Date Admission Date: February 23, 2021 Results & Data ([facility]) Vital Signs (Past 12 Hours) Vital Signs Temp Pulse Resp BP BP Pulse Ox 02/24/21 02:21 36.8 C 68 16 95/59 L 92 02/23/21 23:30 36.8 C 71 16 99/60 L 93 02/23/21 20:50 36.9 C 68 14 106/65 02/23/21 18:51 74 16 101/63 93 PG Care Time/CCT Total # of Minutes Spent Total Time Spent with Patient: Total time spent is greater than 50% in coordination of care (as documented) at patient's floor/unit and/or counseling patient: Coding Level of Care Code None Diagnoses S/P laparoscopic appendectomy Z90.49
[2021-02-24 07:08] LABS: Hemoglobin 13.8 g/dL (12.0-16.0); Immature Granulocytes # (auto) 0.01 K/uL (0.00-0.02); Immature Granulocytes % (auto) 0.1 %; Lymphocytes # (auto) 0.29 K/uL (1.2-3.4); Lymphocytes % (auto) 3.7 %; Mean Corpuscular Hemoglobin 31.6 pg (25-34); Mean Corpuscular Hgb Conc 34.5 g/dL (32-36); Mean Corpuscular Volume 91.5 fL (80-100); Mean Platelet Volume 9.2 fL (7.4-10.4); Monocytes # (auto) 0.47 K/uL (0.11-0.59); Neutrophils # (auto) 7.02 K/uL (1.4-6.5); Neutrophils % (auto) 90.2 %; Platelet Count 259 K/uL (130-400); RDW Coefficient of Variation 13.1 % (11.5-14.5); RDW Standard Deviation 43.7 fL (36.4-46.3); Red Blood Count 4.37 M/uL (4.2-5.4); White Blood Count 7.79 K/uL (4.8-10.8)
[2021-02-24 07:34] LABS: Alanine Aminotransferase 15 (12-78); Albumin Level 2.7 gm/dl (3.4-5.0); Aspartate Aminotransferase 12 U/L (15-37); BUN Creatinine Ratio 11.1 (10-20); Blood Urea Nitrogen 7 mg/dl (7-18); Calcium 8.8 mg/dl (8.5-10.1); Carbon Dioxide 30 mmol/L (21-32); Chloride 109 mmol/L (98-107); Est GFR (African American) 112.6 ml/min; Est GFR (Non-African American) 97.2 ml/min; Glucose 123 mg/dl (70-99); Sodium 141 mmol/L (136-145)
[2021-02-24 07:49] LABS: Albumin Globulin Ratio 0.8 (0.9-2); Alkaline Phosphatase 105 U/L (45-117); Globulin 3.6 gm/dl (2.5-4.0); Phosphorus 3.2 mg/dl (2.5-4.9); Total Protein 6.3 gm/dl (6.4-8.2)
[2021-02-24] MEDS: busPIRone 5 MG TAB PO SCH ×2 (10:04→20:27)
[2021-02-24] MEDS: haloperidoL 1 MG TAB PO SCH (10:05)
[2021-02-24] MEDS: DONEPEZIL HCL 10 MG TAB PO SCH ×2 (10:05→20:28)
[2021-02-24] MEDS: MEMANTINE HCL 10 MG TAB PO SCH ×2 (10:06→20:28)
[2021-02-24] MEDS: oxyCODONE HCL IR 5 MG TAB (IMMEDIATE RELEASE) PO PRN ×2 (10:16→16:42)
[2021-02-24] MEDS: MUPIROCIN 2% OINT 22 GM TUBE EXT SCH ×2 (10:20→20:28)
[2021-02-24] MEDS: LORazepam 0.5 MG TAB PO SCH (11:42)
[2021-02-24] MEDS: HEPARIN SOD 5,000 UNIT/0.5 ML VIAL SQ SCH ×2 (11:43→20:28)
--- NOTE | 2021-02-24 12:49 | Hospitalist Progress Note ---
Date of Service February 24, 2021 Assessment & Plan (1) Acute appendicitis: Plan: POD1 s/p appendectomy with Dr. Hernández on 02/23. Presented with abd pain/diarrhea PT/OT/pain management/DVT prophylaxis (heparin) per primary service Tolerating regular diet -- fed by nursing staff. to visit this afternoon --> Needs assistance with all ADLs, follows Neurology and most recently with hypersomnolence and medications adjusted at that visit. Medications ordered as taking outpatient (2) Alzheimer's dementia: Plan: Advanced, with depression/anxiety Neuropsychiatric testing in 2017 c/w early Alzheimers. Pt had "meltdown" when got COVID in 02/2020. Aides several hours daily Patient is non verbal. Home medications resumed --> buspar 20mg BID, aricept 10mg BID, haldol 2mg daily, ativan 0.5mg Qam, 1mg @ 1400 (given slightly early today and patient with increased solmnlence when examined), paroxetine 20mg HS, namenda 10mg BID --> Most recent notes January with recs to increase paxil to 40mg if stable and wean off haldol --> ?reach out to Neuro while inpatient to make further adjustments if needed Frequent checks by nursing Has had moments of agitation in previous hospital stay at [facility]. Will need to monitor. Per wellness visit over the summer, patient on wait list for [facility] and patient to transfer her there when he believes he can no longer care for her at home, but didn't feel at that time they were there yet Plan: continued inpatient stay Hospitalist Service will sign off at this time. Please feel free to contact us if there are any new or acute concerns. Admission and Anticipated Discharge Date Admission Date: February 23, 2021 Supervising Physician Co-Signing Physician Notes TERESA Supervision Note: I did not personally see or examine the patient today, but I verified all griggs points of TERESA Lim's assessment and plan with the following exceptions/additions: None Subjective patient evaluated around lunch -- RN at bedside assisting with feeding. patient had been opening eyes to name but initially kept them closed. just got dose of her afternoon ativan, medicated for pain earlier for tenderness on palpation -- appropriately tender today per-incisional. resting comfortably at this time. Review of Systems Review of Systems: All systems reviewed & are unremarkable except as noted in HPI & below and Unobtainable due to cognitive status Physical Exam Physical Exam: WD/WN, sitting up in bed being fed lunch, no acute distress eyes anicteric mmm, trachea midline without deviation resp even, unlabored, no accessory muscle use, diminished in the bases, on room air opens eyes at times when pressing on belly -- abdomen with +BS throughout, 3 surgical incisions - look good, c/d/i with glue in place. msk- does not move extremities, no focal deficit or facial droop appreciated skin -- warm, dry ext: no edema, calves non-tender gu; maldonado with yellow urine Results & Data Results & Data ([facility]) Vital Signs (Past 12 Hours) Vital Signs Temp Pulse Resp BP BP Pulse Ox 02/24/21 07:00 37.1 C 73 16 98/60 L 02/24/21 02:21 36.8 C 68 16 95/59 L 92 PG Care Time/CCT Total # of Minutes Spent Total Time Spent with Patient: Total time spent is greater than 50% in coordination of care (as documented) at patient's floor/unit and/or counseling patient: Coding Level of Care Code 99744 Subseq Hosp Care Lvl 2 Diagnoses Acute appendicitis K35.80 Alzheimer's dementia G30.9; F02.80
[2021-02-24] MEDS ORDERED: LORazepam 1 MG TAB PO SCH (14:00)
[2021-02-24 17:13] LABS: Appearance Urine Clear (Clear); Bacteria Urine Automated Negative (Negative); Bilirubin Urine Negative (Negative); Blood Urine 1+ (Negative); Color Urine Yellow; Glucose Urine UA Negative (Negative); Ketones Urine Negative (Negative); Leukocyte Esterase Urine 1+ (Negative); Nitrite Urine Negative (Negative); Protein Urine Negative (Negative); Specific Gravity Urine 1.017 (1.000-1.030); Urobilinogen Urine Negative (Negative)
[2021-02-24] MEDS ORDERED: ACETAMINOPHEN 325 MG TAB PO PRN (17:54)
[2021-02-24] MEDS: DOCUSATE SODIUM/SENNA 50/8.6MG TAB PO SCH (18:45)
[2021-02-24] MEDS: PARoxetine HCL 20 MG TAB PO SCH (20:28)
[2021-02-25 06:04] LABS: Basophils # (auto) 0.01 K/uL (0-0.2); Basophils % (auto) 0.2 %; Eosinophils # (auto) 0.02 K/uL (0-0.5); Eosinophils % (auto) 0.4 %; Hemoglobin 12.6 g/dL (12.0-16.0); Immature Granulocytes # (auto) 0.01 K/uL (0.00-0.02); Immature Granulocytes % (auto) 0.2 %; Lymphocytes # (auto) 1.49 K/uL (1.2-3.4); Lymphocytes % (auto) 29.2 %; Mean Corpuscular Hemoglobin 30.4 pg (25-34); Mean Corpuscular Hgb Conc 32.3 g/dL (32-36); Mean Corpuscular Volume 94.2 fL (80-100); Mean Platelet Volume 9.7 fL (7.4-10.4); Monocytes # (auto) 0.39 K/uL (0.11-0.59); Monocytes % (auto) 7.6 %; Neutrophils # (auto) 3.18 K/uL (1.4-6.5); Neutrophils % (auto) 62.4 %; Platelet Count 230 K/uL (130-400); RDW Coefficient of Variation 13.4 % (11.5-14.5); RDW Standard Deviation 45.9 fL (36.4-46.3); Red Blood Count 4.14 M/uL (4.2-5.4)
[2021-02-25] MEDS: CLINDAMYCIN 600 MG in DEXTROSE 5% 50 ML IV SCH (06:13)
[2021-02-25 06:31] LABS: Alanine Aminotransferase 14 (12-78); Albumin Level 2.6 gm/dl (3.4-5.0); Aspartate Aminotransferase 12 U/L (15-37); BUN Creatinine Ratio 17.2 (10-20); Blood Urea Nitrogen 11 mg/dl (7-18); Calcium 8.2 mg/dl (8.5-10.1); Carbon Dioxide 30 mmol/L (21-32); Chloride 112 mmol/L (98-107); Est GFR (African American) 112.1 ml/min; Est GFR (Non-African American) 96.7 ml/min; Glucose 88 mg/dl (70-99); Potassium 3.4 mmol/L (3.5-5.1); Sodium 145 mmol/L (136-145)
[2021-02-25 06:32] LABS: Albumin Globulin Ratio 0.8 (0.9-2); Alkaline Phosphatase 90 U/L (45-117); Bilirubin,Total 0.6 mg/dl (0.2-1); Globulin 3.2 gm/dl (2.5-4.0); Total Protein 5.8 gm/dl (6.4-8.2)
--- NOTE | 2021-02-25 07:46 | Surgery Progress Note ---
Date of Service February 25, 2021 Assessment & Plan (1) S/P laparoscopic appendectomy: Plan: Patient is awake and smiling Her laboratories appear to be stable Plan for discharge home where she has [id number] caretakers We will continue some antibiotic for 4 to 5 days Pain meds She apparently crushes tablets and may do better with liquid medication I written the discharge for the caretakers to call the office next week and we may be able to avoid An office visit Admission and Anticipated Discharge Date Admission Date: February 23, 2021 Results & Data ([facility]) Vital Signs (Past 12 Hours) Vital Signs Temp Pulse Resp BP Pulse Ox 02/24/21 22:11 36.5 C 81 18 100/64 92 PG Care Time/CCT Total # of Minutes Spent Total Time Spent with Patient: Total time spent is greater than 50% in coordination of care (as documented) at patient's floor/unit and/or counseling patient: Coding Level of Care Code None Diagnoses S/P laparoscopic appendectomy Z90.49
[2021-02-25] MEDS: DONEPEZIL HCL 10 MG TAB PO SCH (08:05)
[2021-02-25] MEDS: DOCUSATE SODIUM/SENNA 50/8.6MG TAB PO SCH (08:05)
[2021-02-25] MEDS: haloperidoL 1 MG TAB PO SCH (08:05)
[2021-02-25] MEDS: HEPARIN SOD 5,000 UNIT/0.5 ML VIAL SQ SCH (08:05)
[2021-02-25] MEDS: MEMANTINE HCL 10 MG TAB PO SCH (08:05)
[2021-02-25] MEDS: LORazepam 0.5 MG TAB PO SCH (08:05)
[2021-02-25] MEDS: busPIRone 5 MG TAB PO SCH (08:05)
[2021-02-25] MEDS: MUPIROCIN 2% OINT 22 GM TUBE EXT SCH (08:55)
[2021-02-25] MEDS ORDERED: POLYETHYLENE (MIRALAX) 17 GM PACK PO SCH (09:00)
[2021-02-25] MEDS: SODIUM CHLORIDE 0.9% 1000ML 1,000 ML IV SCH (09:26)
--- NOTE | 2021-03-01 09:38 | Discharge Summary (DS) ---
DATE OF ADMISSION: 02/23/2021 DATE OF DISCHARGE: 02/25/2021 PRINCIPAL DIAGNOSIS: Acute appendicitis. PROCEDURE: The patient underwent laparoscopic appendectomy. HISTORY OF PRESENT ILLNESS: The patient is a 60-year-old female with severe Parkinson's disease, pre sented to the Emergency Room with acute appendicitis. She was taken to the operating room acutely wh ere she underwent laparoscopic appendectomy, which she tolerated very well. She was continued on IV antibiotics for 48 hours and then discharged home on oral antibiotics. She is to be followed in the surgical clinic within 2 weeks. Job ID: [id number]
== END 2021-02-25 14:01 | disposition home or self-care (01) | DRG 341 ==
LOC: ED 10:39 → OR 14:00 → 3N 14:53
DX: F02.80 Dementia in other diseases classified elsewhere, unspecified severity, without behavioral disturbance, psychotic disturbance, mood disturbance, and anxiety; Z88.0 Allergy status to penicillin; Z88.5 Allergy status to narcotic agent; R53.2 Functional quadriplegia; G30.9 Alzheimer's disease, unspecified; K35.80 Unspecified acute appendicitis